=== PATIENT | female | born 1980 | race Caucasian/White ===

== ENCOUNTER 2024-10-24 10:11 | Outpatient (CLI) | payer MEDICAID, SELFPAY ==
--- NOTE | 2024-10-24 10:25 | ECG_ITS ---
Test Date: 2024-10-24 10:54:18 Measurements Intervals [place] Rate: 68 P: 1 UT: 164 QRS: -16 QRSD: 85 T: 24 QT: 384 QTc: 410 Interpretive Statements SINUS RHYTHM LOW QRS VOLTAGE IN PRECORDIAL LEADS [QRS DEFLECTION < 1.0 mV IN CHEST LEADS] INCOMPLETE RIGHT BUNDLE BRANCH BLOCK POSSIBLE ANTERIOR MYOCARDIAL INFARCTION [30 ms Q WAVE IN V3/V4, OR R < 0.2 mV IN V4], OF INDETERMINATE AGE No previous ECG available for comparison Electronically Signed On 10-24-2024 16:22:04 STRATEGIC MARKETING SPECIALIST by Harry Canseco M.D.
--- OUTSIDE RECORDS SUMMARY | 2024-10-24 11:14 | XMS_ITS | Clinical Summary ---
Author Organization [facility] Address [address] [place] [address]. [place], [place] [id number] [place] [id number] Care Team Providers Care Extension Professor Name Role Phone Navjot Hayden MD Primary Care Provider [phone] Allergies No known active allergies Medications No known medications Family History Medical History Relation Comments Cancer Mother Heart Disease Mother Relation Status Comments Mother Social History Tobacco Use Types Packs/Day Years Used Date Smoking Tobacco: Former Smokeless Tobacco: Never Alcohol Use Standard Drinks/Week Comments Yes 0 (1 standard drink = 0.6 oz pur e alcohol) OCCASIONAL Comments No Sex and Gender Information Value Date Recorded Sex Assigned at Not on file 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 Gender Identity Not on file Sexual Orientation Not on file Last Filed Vital Signs Vital Sign Reading Time Taken Comments Blood Pressure 129/91 04/30/2019 7:30 PM CDT Pulse 79 04/30/2019 7:30 PM CDT Temperature 36.2 ??C (97.1 ??F) 04/30/2019 7:30 PM CD T Respiratory Rate 18 04/30/2019 7:30 PM CDT Oxygen Saturation 97% 04/30/2019 7:30 PM CDT Inhaled Oxygen Concentration - - Weight 81.6 kg (180 lb) 04/30/2019 7:30 PM CDT Height 162.6 cm (5' 4 ) 04/30/2019 7:30 PM CDT Body Mass Index 30.9 04/30/2019 7:30 PM CDT Plan of Treatment Health Maintenance Due Date Last Done Comments Cervical Cancer Screening Pa p Smear (Age 30 to 64) Every 3 Years 1981 Annual Physical 1984 Hepatitis C 1999 DTaP, Tdap and Td Vaccines ( 1 - Tdap) 2000 Hepatitis B Vaccines (1 of 3 - 19+ 3-dose series) 2000 Cervical Cancer Screening Pa p with HPV Testing (Age 30 to 64) Every 5 Years 2011 Cervical Cancer Screening with HPV 2011 Mammogram Screening 2021 COVID-19 Vaccine ( - 2023-2 5 season) 2024 Influenza Adult (#1) 2024 HPV Vaccines Aged Out No longer eligi ble based on patient's age to complete this topic Meningococcal B Vaccine Aged Out No l onger eligible based on patient's age to complete this topic Meningococcal Vaccine Aged Out No yakelin liliam eligible based on patient's age to complete this topic Pneumococcal Vaccine: Pediat rics (0 to 5 Years) and At-Risk Patients (6 to 64 Years) Aged Out No longer eligible b ased on patient's age to complete this topic RSV Immunizations Under 20 Months Aged Out No longer eligible based on patient's age to complete this topic Care Teams Extension Professor Relationship Specialty Start Date End Date Navjot Hayden MD [address] [place] [id number] PCP - General FAMILY PRACTICE 04/30/19
[2024-10-24 11:16] LABS: Basophils Percent Auto 0.4 % (0.2-1.2); Eosinophils Absolute Auto 0.2 K/mm3 (0-0.3); Eosinophils Percent Auto 3.7 % (0-4.4); Hematocrit 41.6 % (37.0-47.0); Hemoglobin 13.1 g/dL (12.0-15.0); Immature Granulocyte Absolute 0.03 K/mm3 (0.00-0.031); Immature Granulocyte Percent A 0.6 % (0-0.5); Lymphocytes Absolute Auto 1.74 K/mm3 (0.9-3.2); Lymphocytes Percent Auto 34.1 % (18.3-44.2); Mean Corpuscular HGB Conc 31.5 g/dl (32-36); Mean Corpuscular Hemoglobin 27.7 pg (26-34); Mean Corpuscular Volume 87.9 fl (80-100); Mean Platelet Volume 10.2 fl (7.4-10.4); Monocytes Absolute Auto 0.5 K/mm3 (0.1-0.6); Neutrophils Absolute Auto 2.6 K/mm3 (1.3-6.7); Neutrophils Percent Auto 51.2 % (45.5-73.1); Platelet Count Result 212 k/mm3 (150-375); Red Blood Count 4.73 M/mm3 (4.2-5.4); Red Cell Distribution Width 13.5 % (11.5-14.5); White Blood Count 5.1 K/mm3 (4.5-10.0)
== END 2024-10-24 10:12 | disposition home or self-care (01) ==
LOC: ANHSURGERY 10:20
PROVIDERS: Visit Provider Obstetrics & Gynecology
DX: D21.9 Benign neoplasm of connective and other soft tissue, unspecified (principal); F17.210 Nicotine dependence, cigarettes, uncomplicated
CPT/HCPCS: 36415; 85025; 86850; 86900; 86901; 93005

== ENCOUNTER 2024-10-27 02:36 | Day surgery (SDC) | payer MEDICAID, SELFPAY ==
--- NOTE | 2024-10-18 08:12 | PC.NURSE ---
Report to the Outpatient Waiting Room, entrance under the green pavilion located off [facility], at time _0930_ on date _[id number]_. Planned Procedure Time: _1130_.? Time changes happen often and if your time is changed the preop area will call you the afternoon before. - You and your visitor will be asked to self-screen and do not enter if you have any COVID symptoms. Please call surgeon if you need to reschedule. - A mask is optional within the hospital at this time. Patients may have clear liquids (water, carbonated beverages, clear teas, apple juice) until 3 hours prior to surgery with a maximum of 20 ounces. - No food from midnight until time of surgery and no smoking. This includes no chewing gum, candy or mints. Take only the following medications with a SIP of water on the morning of surgery: ___None____ DO NOT STOP ANY OF YOUR OTHER PRESCRIPTION MEDICATIONS PRIOR TO SURGERY EXCEPT THE FOLLOWING Medications to discontinue per physician ____None____ Please no make-up, nail korean, hairspray, perfume, deodorant, or body powder the day of surgery.? No jewelry (including any body piercings) or valuables the day of surgery, leave them at home.? Please take a shower or bath the night before, or the morning of, surgery with an antibacterial soap.? Wear comfortable, loose fitting clothing.? - Jewelry must be removed prior to entering the operating room.? Rings and piercings that are not removed may be cut off. - The hospital will not accept responsibility for valuables.? - Please leave all valuables, including medications, at home the day of surgery. If you are going home after surgery, a licensed lifter/driver must drive you home.? - NO public transportation without another adult if you receive anesthesia. - We recommend that an adult stay with you for 24 hours following discharge. - We also recommend that you do not drive, make important decision, drink alcoholic beverages, or take any drugs that were not prescribed by your health care provider for at least 24 hours after your discharge time. Follow any additional instructions given to you from your surgeon. Telephone instructions given to _Tristan___and asked if any additional questions and then verbalized understanding. Patient advised to call surgeon office or pre surgery nurse liaison [phone] if any additional questions.
--- NOTE | 2024-10-24 07:20 | PM.IMHP ---
H&P: HPI History of Present Illness Date/Time: 10/24/24 07:20 Chief Complaint: Enlarged uterus and pelvic pain Narrative: 44-year-old female admitted for robotic hysterectomy bilateral salpingectomy secondary to symptomatic uterine fibroids. Imaging has shown large fibroids she has pain discomfort and dyspareunia risks and benefits reviewed in full. She received the ACOG handout entitled hysterectomy as well as the Liam handout. She had all questions answered and asked to proceed Review of Systems Review of Systems: All systems reviewed & are unremarkable except as noted in HPI and below PMFSH Social History Social History Smoking packs per day: 1 Smoking cigarettes per day: 20.0 Years smoked: 22 Smoking pack-years: 22.00 Smoking status: Former smoker Tobacco type: cigarettes and e-cigarettes/vaping Smoking end date: 10/18/19 Additional smoking assessment comments: Occasionally vapes noww. Living arrangements: with family Spiritual care concerns: No Meds Home Medications and Allergies Home Medications ?Medication ?Instructions ?Recorded ?Confirmed ?Type No Home Medications 10/18/24 10/18/24 History Allergies Allergy/AdvReac Type Severity Reaction Status Date / Time Penicillins Allergy Unknown Unknown Verified 10/18/24 08:24 Exam Const: General: cooperative, healthy appearing and comfortable Nutritional Appearance: average body habitus Orientation/consciousness: oriented to person, oriented to place and oriented to time HENMT: Head: normal to inspection Resp: Effort & Inspection: normal respiratory effort Cardio: Rate: regular rate Rhythm: regular rhythm Heart sounds: S1 normal heart sound present and S2 normal heart sound present GI: Inspection: normal to inspection : External Female Exam: normal external appearance Speculum Exam - Vagina: normal appearance of the vagina Speculum Exam - Cervix: normal appearance of the cervix Bimanual exam- vagina & uterus: enlarged, nodular and Uterine tenderness Bimanual Exam- Adnexa, other: normal adnexae Assessment and Plan Assessment and plan (1) Enlarged uterus: Code(s): N85.2 - Hypertrophy of uterus Status: Acute (2) Pelvic pain: Code(s): R10.2 - Pelvic and perineal pain Status: Acute (3) Uterine fibroid: Code(s): D25.9 - Leiomyoma of uterus, unspecified Status: Acute (4) Dyspareunia: Status: Acute Plan Proceed with robotic total vaginal hysterectomy and bilateral salpingectomy
[2024-10-27] VITALS (9 sets, daily range): BP systolic 107–136; BP diastolic 57–88; PULSE 54–81; RESP 12–20; TEMP 36.4–37.1; O2SAT 95–100; BMI 30.4
--- OUTSIDE RECORDS SUMMARY | 2024-10-27 02:38 | XMS_ITS | Clinical Summary ---
Author Organization [facility] Address [address] [place] [address]. 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
--- NOTE | 2024-10-27 07:09 | WPDHPUPDATE1 ---
History and Physical Update Update Date/Time: 10/27/24 07:09 History and Physical has been reviewed, including an updated exam of the patient. There are NO changes in the patient's condition. Risks, benefits, and alternatives have been discussed and questions answered. Patient agrees to proceed with procedure.
--- NOTE | 2024-10-27 09:45 | WPDANESEPPF ---
Anes - Initial Pre Proc Eval Procedure: Operation Date: 10/27/24 11:30 Proposed Procedures p Robotic Assisted Total Vaginal Hysterectomy with Bilateral Salpingectomy - Kushal Brambila MD Date/Time: 10/27/24 09:45 Surgeon: Kushal Brambila MD Pre Op Diagnosis: pelvic pain, fibroid, heavy bleeding, Patient Data Age: 44 Gender: F Height: 1.63 m Weight: 79.5 kg Allergies Allergy/AdvReac Type Severity Reaction Status Date / Time Penicillins Allergy Unknown Unknown Verified 10/27/24 09:52 Home Medications ?Medication ?Instructions ?Recorded ?Confirmed ?Type hydrocodone 5 mg-acetaminophen 325 1 tablet PO Q4H PRN pain #30 tabs 10/27/24 Rx mg tablet Patient hx anesthesia problems: none Family hx anesthesia problems: none Results Review: All pre-operative results and documents have been reviewed as part of the pre-operative evaluation. [facility] Past Medical History Medical History (Updated 10/27/24 @ 09:45 by Fernandez Adame DO) Uterine fibroid Social History Social History Smoking packs per day: 1 Smoking cigarettes per day: 20.0 Years smoked: 22 Smoking pack-years: 22.00 Smoking status: Former smoker Tobacco type: cigarettes and e-cigarettes/vaping Smoking end date: 10/18/19 Additional smoking assessment comments: Occasionally vapes noww. Living arrangements: with family Spiritual care concerns: No Anes - Eval Final PreProcedure Day of Procedure 10/27/24 09:45 Patient weight: obese Heart: regular rate and rhythm Lungs: clear to auscultation Airway: Mallampati scale class II Neurological: alert and oriented Last oral intake: >/= 8 hours ASA classification: II Emergent: no Anesthetic plan: proceed Anesthesia type and monitoring: general ETT and standard monitoring Results Review: All pre-operative results and documents have been reviewed as part of the pre-operative evaluation. Informed Consent: The patient's anesthetic plan and its attendant risks and benefits were discussed with the patient/family/POA. Questions were solicited and answers provided to the satisfaction of the patient/family/POA.
[2024-10-27] MEDS: ACETAMINOPHEN 500 MG TABLET 1000 MG PO ×3 (10:16→22:49)
[2024-10-27] MEDS: KETOROLAC 15 MG/ML VIAL (*BKC) IV PUSH (10:16)
[2024-10-27] MEDS: LACTATED RINGERS 1,000 ML 30 ML IV CONT ×2 (10:20→12:10)
[2024-10-27] MEDS: ceFAZolin 2 GM/D5W 50 ML 2 GM/50 ML BAG IVPB (10:58)
--- NOTE | 2024-10-27 11:56 | W.PM.PROC2 ---
Procedure Note - Detailed Date of Procedure 10/27/24 Pre-op Diagnosis pelvic pain, fibroid, heavy bleeding, Post-op Diagnosis Same Procedure Performed Robotic total vaginal hysterectomy Surgeon Kushal Brambila MD Anesthesia General Indications 44-year-old female enlarged uterus bleeding Findings Absent left adnexa. Absent right tube. Normal-appearing right ovary. Enlarged uterus Description of Procedure Patient was prepped placed excellent trach anesthesia placed in posterior anterior lip of the cervix grasped with a single-tooth tenaculum. Uterus sounded to 12cm. Serial dilatation with fragmented dilators performed followed by the passage of the 10. NATASHA and the 3. 0.5 cold cup. Weighted speculum in single-tooth removed. A 16 [place] Iglesias catheter was placed in the bladder the gloves were changed. A supraumbilical incision made Veress needle passed in the abdomen. Abdomen with CO2 gas [id number]. The 8mm trocar advanced in the abdomen. Downside visualized no injury seen. Patient placed in Trendelenburg and right left lateral quadrant incision made. 8mm trocars advanced under direct visualization assuring no injury. Right upper quadrant incision made. 8mm trocar advanced under direct visualization assuring no injury. The robot was docked. Attention was turned to the drug and alcohol counselor. The left round ligament grasped, burned, cut. Anterior bladder flap was formed by sharply dissecting peritoneum and reflecting this caudally away from the cervix uterus to the opposite round ligament which was clamped, burned, cut. The left adnexa was completely removed multiple claudia were present. There was no right fallopian tube the right ovary appeared within normal limits the utero-ovarian ligament left was clamped, burned, cut and brought down the lateral edge of the uterus clamping burning cutting the cardinal broad ligaments until the large tortuous blood vessels were seen on the left these were individually clamped, burned, cut. The right ovary was conserved by clamping burning cutting the utero-ovarian ligament bringing this to the previously cut round ligament. The cardinal broad ligaments then serially skeletonized clamping burning cutting and bringing this down to the level of the uterine vessels which were individually clamped, burned, cut. Blanching the uterus was noted a colpotomy incision made. Cervix and uterus through the vagina. The vagina then closed with continuous running 0V lock from lateral edge to lateral edge back to midline. Irrigation undertaken until clear and hemostasis was assured. The robot was undocked. The gas removed from the abdomen. The trocars removed the incisions closed with 4 Monocryl and glue. The patient was awakened went recovery in satisfactory condition. All sponge, needle, instrument counts were correct. There were no immediate complications Estimated Blood Loss 25 Packing No Pathology Yes Complications No immediate complications Condition Stable Disposition PACU
--- NOTE | 2024-10-27 12:00 | PM.DS ---
DS: Admitting Diagnosis Discharge Date 10/2024 Admitting Diagnosis Enlarged uterus/pelvic pain/dyspareunia DS: Discharge Diagnosis Discharge Diagnosis (1) Pelvic pain: Code(s): R10.2 - Pelvic and perineal pain Status: Acute (2) Enlarged uterus: Code(s): N85.2 - Hypertrophy of uterus Status: Acute (3) Uterine fibroid: Code(s): D25.9 - Leiomyoma of uterus, unspecified Status: Acute (4) Dyspareunia: Status: Acute DS: Summary Hospital Course Reason for hospitalization: Patient was admitted for robotic total vaginal hysterectomy on 10/27/2024. The procedure was unremarkable please refer the operative report Hospital Course: Patient's hospital was unremarkable. She remained afebrile. She was up, voiding without difficulty, eating regular diet ambulating generally without complaints. Time Spent with Patient Time attestation: Total time spent providing and/or coordinating discharge services: Exam Const: General: cooperative, healthy appearing and comfortable Nutritional Appearance: average body habitus Orientation/consciousness: oriented to person, oriented to place and oriented to time HENMT: Head: normal to inspection Resp: Effort & Inspection: normal respiratory effort Cardio: Rate: regular rate Rhythm: regular rhythm Heart sounds: S1 normal heart sound present and S2 normal heart sound present GI: Inspection: normal to inspection and incision (Wounds are clean dry and intact) DS: Data Data Completed and Pending Pending studies at discharge: Pending at discharge 10/27/24 09:45 Surgical [PTH] Routine Discharge Plan Discharge Patient Disposition: Home, Self-Care Patient Language: Cameroonian Stand Alone Forms: General Discharge Instructions Follow-up/Referrals: Kushal Coe MD [Physician] - Discharge Medications: New hydrocodone-acetaminophen 5-325 mg tablet 1 tablet PO Q4H PRN (Reason: pain) Qty: 30 0RF
[2024-10-27] MEDS: fentaNYL CITRATE INJ (*CRX) 100 MCG/2 ML VIAL 25 MCG IV PUSH ×8 (12:20→12:52)
--- NOTE | 2024-10-27 13:23 | OBPPTRN ---
Patient transferred to post room #279 via bed. Support person present. Oriented to unit, room, information board, rooming in, admission packet and security measures. Patient verbalizes understanding.
[2024-10-27] MEDS: SIMETHICONE 80 MG TAB.CHEW PO (15:58)
[2024-10-27] MEDS: DOCUSATE SODIUM 100 MG CAPSULE PO (15:58)
[2024-10-27] MEDS: KETOROLAC 30 MG/ML VIAL (*BKC) IV PUSH ×2 (15:58→22:49)
[2024-10-27] MEDS: oxyCODONE HCL (*CRX) 5 MG TAB IR PO (20:12)
[2024-10-28 00:30] VITALS: BP 111/62; PULSE 97; RESP 16; TEMP 37.1; O2SAT 96
[2024-10-28 04:00] VITALS: BP 114/78; PULSE 62; RESP 16; TEMP 37.2; O2SAT 98
[2024-10-28] MEDS: ACETAMINOPHEN 500 MG TABLET 1000 MG PO (05:00)
[2024-10-28] MEDS: KETOROLAC 30 MG/ML VIAL (*BKC) IV PUSH (05:01)
[2024-10-28 06:28] LABS: Basophils Percent Auto 0.2 % (0.2-1.2); Eosinophils Percent Auto 0.1 % (0-4.4); Hematocrit 37.6 % (37.0-47.0); Immature Granulocyte Absolute 0.08 K/mm3 (0.00-0.031); Immature Granulocyte Percent A 0.5 % (0-0.5); Lymphocytes Absolute Auto 1.15 K/mm3 (0.9-3.2); Lymphocytes Percent Auto 7.1 % (18.3-44.2); Mean Corpuscular HGB Conc 31.9 g/dl (32-36); Mean Corpuscular Hemoglobin 27.8 pg (26-34); Mean Platelet Volume 10.2 fl (7.4-10.4); Monocytes Percent Auto 6.4 % (2.6-8.5); Neutrophils Absolute Auto 13.8 K/mm3 (1.3-6.7); Neutrophils Percent Auto 85.7 % (45.5-73.1); Platelet Count Result 291 k/mm3 (150-375); Red Blood Count 4.32 M/mm3 (4.2-5.4); Red Cell Distribution Width 13.3 % (11.5-14.5); White Blood Count 16.1 K/mm3 (4.5-10.0)
--- NOTE | 2024-10-28 07:29 | P.PNOB_ITS ---
ANATOMIC PATHOLOGY MANAGER - A/P Assessment and plan (1) Enlarged uterus: Code(s): N85.2 - Hypertrophy of uterus Status: Acute (2) Pelvic pain: Code(s): R10.2 - Pelvic and perineal pain Status: Acute (3) Uterine fibroid: Code(s): D25.9 - Leiomyoma of uterus, unspecified Status: Acute (4) Dyspareunia: Status: Acute Plan home follow up in 2 weeks Postoperative Procedures: Procedures Operation Date: 10/27/24 11:30 Actual Procedure Side Surgeon p Robotic Assisted Total Vaginal Hysterectomy Bilateral Kushal Brambila MD Time Spent With Patient Time: Total time spent is greater than 50% in coordination of care (as documented) at patient's floor/unit and/or counseling patient: Time with patient: less than 15 minutes ANATOMIC PATHOLOGY MANAGER- PN:Subj Post-Op Subjective Date/time seen: 10/28/24 07:29 Subjective: patient reports feeling better, patient has no complaints, patient desires discharge, pain is well controlled and patient is tolerating oral intake Exam 2 Const: General: cooperative, healthy appearing and comfortable Nutritional Appearance: average body habitus Orientation/consciousness: oriented to person, oriented to place and oriented to time HENMT: Head: normal to inspection Resp: Effort & Inspection: normal respiratory effort Cardio: Rate: regular rate Rhythm: regular rhythm Heart sounds: S1 normal heart sound present and S2 normal heart sound present GI: Inspection: normal to inspection and incision (Wounds are clean dry and intact) ANATOMIC PATHOLOGY MANAGER - PN: Obj Data Vital Signs Vital Signs: Vital Signs - 24 hr 10/27/24 09:32 10/27/24 12:10 10/27/24 12:25 Temperature 98.4 F 98.4 F Pulse Rate 71 72 59 L Respiratory Rate 16 14 12 Blood Pressure 107/78 124/65 136/81 Pulse Oximetry 95 99 100 Oxygen Delivery Simple Face Mask Simple Face Mask Oxygen Flow Rate 8 8 10/27/24 12:40 10/27/24 12:55 10/27/24 13:10 Temperature Pulse Rate 69 60 58 L Respiratory Rate 18 12 12 Blood Pressure 134/88 110/73 112/72 Pulse Oximetry 100 100 100 Oxygen Delivery Nasal Cannula Nasal Cannula Nasal Cannula Oxygen Flow Rate 2 3 3 10/27/24 13:30 10/27/24 13:30 10/27/24 16:00 Temperature 97.5 F L 98 F Pulse Rate 54 L 74 Respiratory Rate 20 18 Blood Pressure 108/71 114/77 Pulse Oximetry 99 99 99 Oxygen Delivery Nasal Cannula Oxygen Flow Rate 2 10/27/24 19:00 10/28/24 00:30 10/28/24 04:00 Temperature 98.7 F 98.7 F 99.0 F Pulse Rate 81 97 62 Respiratory Rate 16 16 16 Blood Pressure 113/57 L 111/62 114/78 Pulse Oximetry 100 96 98 Oxygen Delivery Oxygen Flow Rate Intake/Output Intake/Output: Intake & Output 10/25/24 10/26/24 10/27/24 10/28/24 23:59 23:59 23:59 23:59 Intake Total 930 Output Total 360 Balance 570 Meds/Results Medications: Active Medications Generic Name Dose Route Start Last Admin Trade Name Freq PRN Reason Stop Dose Admin Acetaminophen 1,000 mg 10/27/24 13:15 10/28/24 05:00 Acetaminophen 500 Mg Tablet PO 1,000 mg Q6HR [facility] Administration Docusate Sodium 100 mg 10/27/24 17:00 10/27/24 15:58 Docusate Sodium 100 Mg Capsule PO 100 mg BID [facility] Administration Enoxaparin Sodium 40 mg 10/28/24 09:00 Enoxaparin 40 Mg/0.4 Ml Syringe SUB-Q DAILY [facility] Ibuprofen 600 mg 10/28/24 06:00 Ibuprofen 600 Mg Tablet PO Q6HR [facility] Naloxone HCl 0.1 mg 10/27/24 13:15 Naloxone Hcl 0.4 Mg/Ml Vial IV PUSH Q2M PRN Respiratory rate less than 10 Ondansetron HCl 4 mg 10/27/24 13:15 Ondansetron Inj 4 Mg/2 Ml Vial IV PUSH Q6H PRN Nausea And Vomiting Oxycodone HCl 5 mg 10/27/24 13:15 10/27/24 20:12 Oxycodone Hcl (*Crx) 5 Mg Tab Ir PO 5 mg Q4H PRN Administration Pain Rated 4-6 Oxycodone HCl 10 mg 10/27/24 13:15 Oxycodone Hcl (*Crx) 5 Mg Tab Ir PO Q6H PRN Pain Rated 7-10 Simethicone 80 mg 10/27/24 13:15 10/27/24 17:16 Simethicone 80 Mg Tab.Chew PO Not Given TIDWM [facility] Labs 10/28/24 04:54 Labs: Laboratory Results - last 24 hr 10/28/24 04:54 WBC 16.1 H RBC 4.32 Hgb 12.0 Hct 37.6 MCV 87.0 MCH 27.8 MCHC 31.9 L RDW 13.3 Plt Count 291 MPV 10.2 Immature Gran % (Auto) 0.5 Neut % (Auto) 85.7 H Lymph % (Auto) 7.1 L [place] % (Auto) 6.4 Eos % (Auto) 0.1 Baso % (Auto) 0.2 Lymph # (Auto) 1.15 [place] # (Auto) 1.0 H Eos # (Auto) 0.0 Baso # (Auto) 0.0 Abs Immat Gran (auto) 0.08 H Absolute Neuts (auto) 13.8 H Absolute Nucleated RBC 0.000 Nucleated RBC % 0.0
[2024-10-28 09:00] VITALS: BP 114/71; PULSE 76; RESP 18; TEMP 37.3; O2SAT 97
[2024-10-28] MEDS: ENOXAPARIN 40 MG/0.4 ML SYRINGE SUB-Q (09:07)
[2024-10-28] MEDS: DOCUSATE SODIUM 100 MG CAPSULE PO (09:07)
[2024-10-28] MEDS: SIMETHICONE 80 MG TAB.CHEW PO (09:07)
--- NOTE | 2024-10-28 10:12 | WPDANESPN ---
Anes - Prog Note Post-Op Date/Time: 10/28/24 10:12 Cardiovascular status: normal Respiratory status: normal Airway patency: baseline Mental status: baseline Post-Op hydration status: normal Vital Signs: Last Vital Signs Temp 37.3 C 10/28/24 09:00 Pulse 76 10/28/24 09:00 Resp 18 10/28/24 09:00 BP 114/71 10/28/24 09:00 Pulse Ox 97 10/28/24 09:00 O2 Del Method Room Air 10/28/24 09:00 O2 Flow Rate 2 10/27/24 13:30 Pain Score (VAS): 1 I/O: Intake & Output 10/27/24 10/28/24 10/28/24 23:59 07:59 15:59 Intake Total 480 Output Total 300 Balance 180 Laboratory Tests 10/28/24 04:54 10/28/24 04:54 WBC 16.1 H RBC 4.32 Hgb 12.0 Hct 37.6 MCV 87.0 MCH 27.8 MCHC 31.9 L RDW 13.3 Plt Count 291 MPV 10.2 Immature Gran % (Auto) 0.5 Neut % (Auto) 85.7 H Lymph % (Auto) 7.1 L [place] % (Auto) 6.4 Eos % (Auto) 0.1 Baso % (Auto) 0.2 Lymph # (Auto) 1.15 [place] # (Auto) 1.0 H Eos # (Auto) 0.0 Baso # (Auto) 0.0 Abs Immat Gran (auto) 0.08 H Absolute Neuts (auto) 13.8 H Absolute Nucleated RBC 0.000 Nucleated RBC % 0.0 Post-procedural complaints: none Patient Feedback: Patient satisfied with anesthetic care.
== END 2024-10-28 10:13 | disposition home or self-care (01) ==
LOC: ANHSURGERY 09:20 → ANHOB2 13:17
PROVIDERS: Visit Provider Obstetrics & Gynecology
PROC: (CPT 58552; principal; 2024-10-27 11:30)
DX: D25.1 Intramural leiomyoma of uterus (principal); F17.290 Nicotine dependence, other tobacco product, uncomplicated; E66.9 Obesity, unspecified; Z68.30 Body mass index [BMI] 30.0-30.9, adult; Z79.891 Long term (current) use of opiate analgesic
CPT/HCPCS: 58552; S2900; 36415; 85025; 88307; 99199; A9270; J0330; J0690; J1100; J1650; J1885; J2003; J2250; J2405; J2704; J3010; J7120